=== PATIENT | male | born 1990 | race Caucasian/White ===

== ENCOUNTER → 2025-05-17 15:46 | Outpatient (REF) | payer OTHER, SELFPAY | LOC: RAD 15:46 | PROVIDERS: ATTENDING PHYSICIAN Nurse Practitioner | DX: R10.31 Right lower quadrant pain (principal) | CPT/HCPCS: 74177; Q9967 ==

== ENCOUNTER 2025-08-01 20:54 | Emergency (ER) | payer OTHER, SELFPAY ==
[2025-08-01 20:59] VITALS: BP 101/63
[2025-08-01 21:13] LABS: Hematocrit 39.9 % (39.0-52.0); Hemoglobin 13.5 g/dL (13.0-18.0); Mean Corp Hgb Conc. 33.8 g/dL (33.0-37.0); Mean Corpuscular Volume 95.5 fL (80.0-94.0); Nucleated Red Blood Cells % 0 % (-); Platelet Count 275 10^3/uL (130-400); Red Cell Dist. Width 12.6 % (11.5-14.5)
[2025-08-01 21:31] LABS: ALT (SGPT) 33 U/L (0-50); AST (SGOT) 25 U/L (17-59); Albumin 4.7 g/dl (3.5-5.0); Alkaline Phosphatase 43 U/L (38-126); Blood Urea Nitrogen 9 mg/dl (9-20); Calcium 9.6 mg/dl (8.4-10.2); Carbon Dioxide 31 mmol/L (22-30); Chloride 104 mmol/L (98-107); Potassium 3.9 mmol/L (3.5-5.1); Sodium 141 mmol/L (135-145); Total Protein 7.2 g/dl (6.3-8.2); eGFR > 60.00
[2025-08-01 21:33] LABS: Glucose 81 mg/dl (70-99)
[2025-08-01 22:23] VITALS: BP 96/58
[2025-08-01 22:24] VITALS: BMI 21.0
[2025-08-01 23:00] VITALS: BP 104/66
--- NOTE | 2025-08-02 00:56 | ED.GENMED ---
History of Present Illness
General
Chief Complaint: Visual Problem
Source: patient
Exam Limitations: none
Time Seen by Provider: 08/01/25 23:07
Nursing documentation reviewed up to this point in time: agreed with
History of Present Illness
History of Present Illness:
34-year-old male presenting to the emergency department today with concerns of an episode of roughly 1 hour double vision and also enlarged pupil on the left side compared to the right. He claims that he consumed THC vape pen prior to symptom onset
but claims he does this regularly. Denies any specific exposure denies any significant pain at the time no nausea vomiting or recent illnesses. Has a very mild headache at this point denies any ongoing visual change. No ongoing double vision.
Past History
Past History
ED Past Medical History: None
Social History
Tobacco: Non-smoker
Alcohol: None
Drug: None
Personal: Single
Living: with family
Employment: Not employed
Review of Systems
Review of Systems
Allergies reviewed?: Yes
All Other Systems: ROS reviewed and negative except as documented in HPI and ROS
Phy Exam
Physical Exam
Physical Exam:
GENERAL: Alert , in no apparent distress
EYE: Normal extraocular movements normal funduscopic examination pupils equal and reactive
NECK: Supple, no significant adenopathy.
ENT: o/p clr, mmm.
CARDIAC: Regular rate and rhythm .
LUNGS: Clear breath sounds bilaterally, no acute respiratory distress, no wheezes/rales/rhonchi
ABDOMEN: Soft, without focal tenderness, no r/g, no cvat
NEUROLOGICAL: Alert and oriented, no focal neuro deficits 5 out of 5 upper and lower extremity strength normal sensation when palpating bilaterally normal finger-nose and [id number]
SKIN: Warm and dry, skin intact.
MUSCULOSKELETAL: No edema, well perfused.
PSYCH: Normal and appropriate interaction.
Course
Orders/Labs/Results
Orders:
Orders
08/01/25 20:58
CT Head W/o Iv Contrast Urgent
Comment:
Reason For Exam: vision changes
08/01/25 21:06
CBC/With Diff [Complete Blood Count/With Diff] Urgent
CMP [Comprehensive Metabolic Panel] Urgent
08/02/25 23:49
CT Head & Neck Angio W/wo IV Urgent
Reason For Exam: double vision, left eye pupil dilated
Abnormal Lab Results
08/01/25
21:06
RBC 4.18 L 10^6/uL
(4.70-6.10)
MCV 95.5 H fL
(80.0-94.0)
MCH 32.3 H pg
(27.0-31.0)
Absolute Monos (auto) 0.9 H 10^3/uL
(0.1-0.6)
Carbon Dioxide 31 H mmol/L
(22-30)
Creatinine 0.6 L mg/dL
(0.7-1.3)
08/01/25 21:06
08/01/25 21:06
Vital Signs
Initial and Last Documented VS:
Initial Vital Signs
Temp Pulse Resp BP Pulse Ox
97.9 F 59 15 101/63 97
08/01/25 20:59 08/01/25 20:59 08/01/25 20:59 08/01/25 20:59 08/01/25 20:59
Last Documented Vital Signs
Temp Pulse Resp BP Pulse Ox
97.9 F 59 15 104/66 97
08/01/25 20:59 08/01/25 20:59 08/01/25 20:59 08/01/25 23:00 08/02/25 00:57
MDM/Problems Addressed
MDM/Problems Addressed:
34-year-old male presenting with concerns of double vision lasting roughly an hour an hour prior to arrival. Now asymptomatic. Vital signs are normal on arrival neurologic examination normal eye examination normal. nonContrasted CT scan normal.
CT angiogram performed without acute abnormalities. Patient with no recurrence of symptoms while here. No evidence of life threat advised for close outpatient follow-up. Return precautions given.
*Pulse Oximetry
SaO2: 97
Oxygen Mode of Delivery: Room air
Patient hypoxic: no (97)
*Critical Care Note
Total Time (30-74mins, 75-104mins- exclusive of procedures): Not Applicable
ED Attending Note
-
Portions of this chart may have been created with voice recognition software.� Occasional wrong word or��sound alike� substitutions may have occurred due to the inherent limitations of voice recognition software.
Discharge Plan
Departure
Patient Disposition: Home (Routine Discharge)
Date of Disposition: 08/02/25
Time of Disposition: 02:37
Patient with high blood pressure during this ER visit?: No
Condition: Good
Covid-19: Not Applicable
Discharge Problem:
Diplopia
Instructions: Double Vision (DC)
Prescriptions:
No Action
No Current Medications
0
Referrals:
Natalie Scott CRNP [Family Provider, Family Practice]
Activity Restrictions/Additional Instructions:
You came to the emergency department today with concerns of double vision. Here you have a reassuring assessment. Please follow closely with your primary care doctor. Return for any worsening, new or concerning symptoms.
Interventions
Interventions:
*Risk Screen - Suicide Last Done: 08/01/25 20:59
*General Assessment Last Done: 08/01/25 20:59
*Neglect/Abuse Screening Last Done: 08/01/25 20:59
*ED- Fall Risk Assessment Last Done: 08/01/25 20:59
*ED COVID-19 Vaccine History Last Done: 08/01/25 20:59
*ED Influenza Vaccine History Last Done: 08/01/25 20:59
ED- Neurological Assessment Last Done: 08/01/25 22:24
ED-EENT Assessment Last Done: 08/01/25 22:40
Discharge Date and Time
Print Language: DUTCH
== END 2025-08-02 02:57 | disposition home or self-care (01) ==
LOC: EMR 20:54
PROVIDERS: EMERGENCY PHYSICIAN Emergency Medicine; FAMILY PHYSICIAN Nurse Practitioner
DX: H53.2 Diplopia (principal); H57.04 Mydriasis
CPT/HCPCS: 99284; 70450; 70496; 70498; 80053; 85025; Q9967